=== PATIENT | male | born 1980 | race Caucasian/White ===

== ENCOUNTER 2024-09-08 15:19 | Outpatient (CLI) | payer BC, SELFPAY ==
--- NOTE | ~2024-09-08 | XR_ITS ---
Cervical Spine: AP, lateral, open-mouth views Clinical History: Pain Findings: The normal lordotic curve is maintained. The vertebral bodies and posterior elements appea r intact. There is mild degenerative disc narrowing at C5-C6 and C6-C7. There is mild facet arthropat hy throughout cervical spine. Pre-vertebral soft tissues are unremarkable. Impression: Mild degenerative spondylosis, as above. Reviewed, dictated and finalized at location . Impression: Mild degenerative spondylosis, as above.
== END 2024-09-08 15:20 | disposition home or self-care (01) ==
LOC: GOSHIMG 15:22
PROVIDERS: PCP Physician Assistant; Visit Provider Physician Assistant
DX: M47.22 Other spondylosis with radiculopathy, cervical region (principal)
CPT/HCPCS: 72040

== ENCOUNTER 2025-03-07 11:32 | Outpatient (CLI) | payer BC, SELFPAY ==
--- NOTE | ~2025-03-07 | XR_ITS ---
EXAMINATION: XR foot LT min 3V, 03/07/2025 11:37 DRAFTER TOPOGRAPHICAL HISTORY: Pain of left heel and left foot, pain x 3 months, no inj, no COMPARISON: No comparisons available. Findings: No acute fracture or malalignment. No significant degenerative changes. Soft tissues unremarkable. Impression: No acute fracture or malalignment. Reviewed, dictated and finalized at location P. TER TOPOGRAPHICAL Impression: No acute fracture or malalignment.
== END 2025-03-07 11:33 | disposition home or self-care (01) ==
LOC: GOSHIMG 11:33
PROVIDERS: PCP Physician Assistant; Visit Provider Physician Assistant
DX: M79.672 Pain in left foot (principal)
CPT/HCPCS: 73630